=== PATIENT | female | born 1970 | race Caucasian/White ===

== ENCOUNTER 2021-05-29 11:52 | Emergency (ER) | payer BC ==
[2021-05-29] MEDS ORDERED: Ketorolac 60 MG/2 ML SDV IM ONE (12:41)
--- NOTE | 2021-05-29 13:51 | CT ---
EXAM: CT CERVICAL SP W/O LOCATION: [facility] DATE/TIME: 05/29/2021 12:47 PM INDICATION: Pain and numbness down right arm into fingers. COMPARISON: None. TECHNIQUE: Routine CT Cervical Spine without IV contrast. Multiplanar reformats. Dose reduction techniques were used. FINDINGS: VERTEBRA: Lateral alignment is normal. There is straightening of the normal cervical lordosis. Craniocervical junction is intact. Mild degenerative change anterior C1-C2 articulation. Vertebral body heights are preserved. Mild posterior interspace narrowing T1-T2. Mildly prominent posterior interbody/uncovertebral spurring C5-C6 and C6-C7 and to a lesser extent C4-C5. Superimposed disc herniations are present at these levels and most evident at C4-C5. Facets are unremarkable. CANAL/FORAMINA: Mild spinal canal stenosis C4-C5. There is moderate or severe foraminal stenosis C5-C6 and on the left at C6-C7 with at least moderate right foraminal stenosis C6-C7. Mild right greater than left foraminal stenosis C4-C5. PARASPINAL: Dorsal paraspinal soft tissues are unremarkable. No vertebral soft tissue swelling. Visualized lung apices are clear. IMPRESSION: 1. Nonspecific straightening of the normal cervical lordosis. 2. Posterior interbody/uncovertebral spurring C4-C5 through C6-C7. Moderate or severe foraminal stenosis C5-C6 and C6-C7 with at least mild foraminal stenosis C4-C5. Mild spinal canal stenosis C4-C5. SIGNED BY: Demarco Olvera MD 05/29/2021 2:44 PM [facility]
--- NOTE | 2021-05-29 14:11 | EDM.PDOC ---
ED HPI GENERAL MEDICAL PROBLEM - General Chief Complaint: Upper Extremity Injury/Pain Stated Complaint: SHARP PAINS, TINGLING, FROM BACK INTO ARMS Time Seen by Provider: 05/29/21 12:02 Source of Information: Reports: Patient History Limitations: Reports: No Limitations - History of Present Illness INITIAL COMMENTS - FREE TEXT/NARRATIVE: 50-year-old female presents the emergency department today with complaints of right shoulder pain with associated numbness radiating down the anterior portion of the right humerus, right forearm and numbness noted to right thumb index and middle finger. Patient states this started today however patient states she was seen last week for similar complaints however these were noted on her left shoulder and left arm and left thumb index and middle fingers. She states she was seen at the walk-in clinic and prescribed muscle relaxers and did go see the chiropractor and the pain and numbness seem to have resolved on the left side. Patient denies any recent injury to her back or neck or history in the past of back injury. Right Shoulder Pain Score (Numeric/FACES): 10 - Related Data Allergies Allergy/AdvReac Type Severity Reaction Status Date / Time No Known Allergies Allergy Verified 05/29/21 12:09 Home Meds: Home Meds Diclofenac Sodium [Voltaren] 75 mg PO BIDMEALS #16 tab.cr 05/29/21 [Rx] Diclofenac Sodium [Voltaren] 75 mg PO BIDMEALS #16 tab.cr 05/29/21 [Rx] Hydrocodone/Acetaminophen [HYDROcodone-Acetaminophen 5-325 MG] 1 each PO Q4H PRN #14 tab 05/29/21 [Rx] Hydrocodone/Acetaminophen [HYDROcodone-Acetaminophen 5-325 MG] 1 each PO Q4H PRN #14 tab 05/29/21 [Rx] Omeprazole Magnesium [Prilosec Otc] 20 mg PO DAILY #10 tablet. 05/29/21 [Rx] Omeprazole Magnesium [Prilosec Otc] 20 mg PO DAILY #10 tablet. 05/29/21 [Rx] predniSONE [Prednisone] 20 mg PO ASDIRECTED #15 tablet 05/29/21 [Rx] predniSONE [Prednisone] 20 mg PO ASDIRECTED #15 tablet 05/29/21 [Rx] Past Medical History - Past Surgical History Female Surgical History: Reports: Hysterectomy Social & Family History - Tobacco Use Tobacco Use Status *Q: Never Tobacco User Review of Systems - Review of Systems Review Of Systems: Comprehensive ROS is negative, except as noted in HPI. ED EXAM, GENERAL - Physical Exam Exam: See Below Exam Limited By: No Limitations General Appearance: Alert, WD/WN, Moderate Distress Ears: Normal External Exam, Hearing Grossly Normal Nose: Normal Inspection Throat/Mouth: Normal Inspection, Normal Lips, Normal Voice, No Airway Compromise Head: Atraumatic Neck: Normal Inspection, Supple Respiratory/Chest: No Respiratory Distress, Lungs Clear, Normal Breath Sounds, No Accessory Muscle Use, Chest Non-Tender Cardiovascular: Normal Peripheral Pulses, Regular Rate, Rhythm, No Edema, No Murmur GI/Abdominal: Normal Bowel Sounds, Soft, Non-Tender, No Distention (Female) Exam: Deferred Rectal (Female) Exam: Deferred Back Exam: Normal Inspection Extremities: Normal Inspection, Normal Range of Motion, No Pedal Edema. No: Non-Tender (Right scapular tenderness) Neurological: Alert, Oriented, Normal Cognition Psychiatric: Normal Affect, Normal Mood Skin Exam: Warm, Dry, Intact, Normal Color, No Rash Lymphatic: No Adenopathy Course - Vital Signs Text/Narrative:: Stated above, patient presents with numbness to right anterior humerus right anterior forearm along the radial area as well as numbness noted to right thumb index and middle finger. Patient notes numbness when palpating her cervical spine around the C5-C6 area. She also notes pain in the right scapular area. Patient does have full range of motion appreciated bilaterally in her upper extremities. Will obtain a CT scan of the cervical spine and medicate the patient with Toradol 60 mg IM as she states she did drive here by herself and does not have anyone who can take her home. She states she did take a Flexeril this morning prior to arrival. Last Recorded V/S: Last Vital Signs Temp 98.3 F 05/29/21 12:05 Pulse 95 05/29/21 12:05 Resp 18 05/29/21 12:05 BP 158/90 H 05/29/21 12:05 Pulse Ox 98 05/29/21 12:05 - Orders/Labs/Meds Meds: Medications Discontinued Medications Generic Name Dose Route Start Last Admin Trade Name Freq PRN Reason Stop Dose Admin Ketorolac Tromethamine 60 mg 05/29/21 12:41 05/29/21 12:54 Ketorolac 60 Mg/2 Ml Sdv IM 05/29/21 12:42 60 mg ONETIME ONE Administration - Re-Assessments/Exams Free Text/Narrative Re-Assessment/Exam: 05/29/21 14:[address] of the cervical spine without contrast: 1. Nonspecific straightening of the normal cervical lordosis. 2. Posterior interbody/uncovertebral [id number]. moderate or severe foraminal stenosis C5-C6 and C6-C7 with at least mild foraminal stenosis C4-C5. Mild spinal canal stenosis C4-C5. Patient will be discharged home with a prescription for prednisone to be taken 20 mg twice daily x5 days then 20 mg daily for 5 days. Patient will LVP so will be given a prescription for Voltaren 75 mg p.o. twice daily x8 days. We will also start her on Protonix 40 mg daily while taking these 2 medications. She states she does have an appointment scheduled with Dr. Padron, orthopedic surgeon for 06/07/2021. Departure - Departure Time of Disposition: 14:11 Disposition: Home, Self-Care 01 Condition: Good Clinical Impression: Cervical radicular pain - Discharge Information Prescriptions: Hydrocodone/Acetaminophen [HYDROcodone-Acetaminophen 5-325 MG] 1 each PO Q4H PRN #14 tab PRN Reason: Pain (Moderate 4-6) Hydrocodone/Acetaminophen [HYDROcodone-Acetaminophen 5-325 MG] 1 each PO Q4H PRN #14 tab PRN Reason: Pain (Moderate 4-6) predniSONE [Prednisone] 20 mg PO ASDIRECTED #15 tablet predniSONE [Prednisone] 20 mg PO ASDIRECTED #15 tablet Omeprazole Magnesium [Prilosec Otc] 20 mg PO DAILY #10 tablet. Omeprazole Magnesium [Prilosec Otc] 20 mg PO DAILY #10 tablet. Diclofenac Sodium [Voltaren] 75 mg PO BIDMEALS #16 tab.cr Diclofenac Sodium [Voltaren] 75 mg PO BIDMEALS #16 tab.cr Referrals: PCP,None [Primary Care Provider] - Forms: ED Department Discharge Additional Instructions: You are seen in the emergency department today with complaints of numbness noted to your left arm and first 3 fingers with associated right shoulder discomfort also numbness noted to your cervical spine area. Recent history of pain and numbness noted to your left arm and fingers on your left hand. CT scan was completed which showed normal aging however there is some stenosis noted in your cervical spine which is likely the cause of your numbness and discomfort. You were given a shot of pain medication while in the emergency department. I have sent a prescription for prednisone 20 mg to be taken twice daily for the next 5 days and then once daily for 5 days after that. You also need to take Voltaren and anti-inflammatory medication to be taken 75 mg twice daily for 8 days. While taking these 2 medications you should be taking Prilosec 20 mg daily to prevent any ulcers in your stomach. I have also sent a prescription for a narcotic medication called hydrocodone you can take 1 tab every 4 hours as needed for more severe pain. You might need to use the medication more frequently over the next couple of days until the prednisone and Voltaren kick in. Also recommend that you keep your follow-up appointment scheduled with Dr. Padron for Saturday of next week. Should your condition worsen or change, do not hesitate return to the emergency department. Sepsis Event Note (ED) - Evaluation Sepsis Screening Result: No Definite Risk - Focused Exam Vital Signs: Vital Signs Temp Pulse Resp BP Pulse Ox 05/29/21 12:05 98.3 F 95 18 158/90 H 98
== END 2021-05-29 14:50 | disposition home or self-care (01) ==
LOC: JD.ED 11:52
DX: M54.12 Radiculopathy, cervical region (principal)
CPT/HCPCS: 72125; 72125-26; 96372; 99283-25; J1885